=== PATIENT | female | born 1955 | race Caucasian/White ===

== ENCOUNTER → 2017-02-19 | Outpatient (CLI) | payer BC ==
--- NOTE | 2017-02-20 14:21 | MM ---
Reason for exam: screening (asymptomatic). Last mammogram was performed 1 year ago. History: Patient is postmenopausal and has history of other cancer at age 56. Physical Findings: A clinical breast exam by your physician is recommended on an annual basis and results should be correlated with mammographic findings. MG Screening Mammo w CAD Bilateral CC and MLO view(s) were taken. Prior study comparison: February 19, 2016, bilateral MG screening mammo w CAD. December 29, 2014, bilateral MG screening mammo w CAD. There are scattered fibroglandular densities. There is chronic nodularity in the right breast. No significant changes when compared with prior studies. ASSESSMENT: Benign, BI-RAD 2 RECOMMENDATION: Routine screening mammogram of both breasts in 1 year.
== END | disposition home or self-care (01) ==
LOC: RADMAMWWP 08:58
PROVIDERS: ATTEND Obstetrics & Gynecology
DX: Z12.31 Encounter for screening mammogram for malignant neoplasm of breast (principal)

== ENCOUNTER → 2017-06-05 | Outpatient (CLI) | payer BC ==
[2017-06-05 14:04] LABS: Basophils # (A) 0.1 k/uL (0-0.2); Basophils % (A) 1 %; Eosinophils # (A) 0.1 k/uL (0-0.7); Eosinophils % (A) 2 %; HCT 38.8 % (34.0-46.0); HGB 12.7 gm/dL (11.4-16.0); Lymphocytes % (A) 35 %; MCH 29.1 pg (25.0-35.0); MCHC 32.7 g/dL (31.0-37.0); MCV 89.1 fL (80.0-100.0); Mean Platelet Volume 7.7; Monocytes # (A) 0.3 k/uL (0-1.0); Monocytes % (A) 5 %; Neutrophils # (A) 3.2 k/uL (1.3-7.7); Neutrophils % (A) 56 %; Platelet Count 269 k/uL (150-450); RBC 4.35 m/uL (3.80-5.40); RDW 13.3 % (11.5-15.5); WBC 5.8 k/uL (3.8-10.6)
[2017-06-05 14:19] LABS: Ionized Calcium 5.9 mg/dL (4.5-5.3)
[2017-06-05 14:20] LABS: Phosphorus 3.1 mg/dL (2.5-4.5)
[2017-06-05 14:35] LABS: T4, Free (Free Thyroxine) 1.95 ng/dL (0.78-2.19)
[2017-06-05 19:33] LABS: Parathyroid Hormone Intact 104.5 pg/mL (14.0-72.0)
== END | disposition home or self-care (01) ==
LOC: LABWHC1 13:22
PROVIDERS: ATTEND Internal Medicine Endocrinology, Diabetes & Metabolism
DX: E89.0 Postprocedural hypothyroidism (principal); D34 Benign neoplasm of thyroid gland; E21.0 Primary hyperparathyroidism; E55.9 Vitamin D deficiency, unspecified
CPT/HCPCS: 36415; 82306; 82330; 83735; 83970; 84100; 84439; 84443; 85025

== ENCOUNTER 2018-03-22 18:26 | Emergency (ER) | payer MEDICARE ==
--- NOTE | 2018-03-22 18:59 | ED ---
Fall HPI - General Chief Complaint: Fall Stated Complaint: fall, left ankle pain, knee pain, foot pain Time Seen by Provider: 03/22/18 18:33 Source: patient, RN notes reviewed, old records reviewed Mode of arrival: ambulatory - History of Present Illness Initial Comments: Patient is a 63-year-old female who presents emergency Department today with chief complaint of left ankle, bilateral knee pain and bilateral foot pain. Patient reports that she tripped and fell going down 2 stairs. She denies any head or neck injury. She states that she had no loss consciousness. She denies any upper extremity injury, or significant back pain. Patient reports that she has had swelling over the left ankle. Patient relates that she was at a crisis constitution party and ice over the area. She states that over the past few years she's had no history of extremity injuries. - Related Data Previous Rx's Medication Instructions Recorded Ibuprofen 600 mg PO TID #30 tablet 03/22/18 Allergies Allergy/AdvReac Type Severity Reaction Status Date / Time cefaclor [From Ceclor] Allergy Unknown Verified 03/22/18 18:29 Review of Systems ROS Statement: Those systems with pertinent positive or pertinent negative responses have been documented in the HPI. ROS Other: All systems not noted in ROS Statement are negative. Past Medical History Past Medical History: Thyroid Disorder History of Any Multi-Drug Resistant Organisms: None Reported Past Surgical History: Section, Hysterectomy, Tonsillectomy Additional Past Surgical History / Comment(s): thyroidectomy, tumor removed right chest, Past Psychological History: No Psychological Hx Reported Smoking Status: Never smoker Past Alcohol Use History: None Reported Past Drug Use History: None Reported General Exam - General Exam Comments Initial Comments: 63-year-old female. Limitations: no limitations General appearance: alert, in no apparent distress Head exam: Present: atraumatic, normocephalic, normal inspection Eye exam: Present: normal appearance, PERRL, EOMI. Absent: scleral icterus, conjunctival injection, periorbital swelling ENT exam: Present: normal exam, mucous membranes moist Neck exam: Present: normal inspection. Absent: tenderness, meningismus, lymphadenopathy Respiratory exam: Present: normal lung sounds bilaterally. Absent: respiratory distress, wheezes, rales, rhonchi, stridor Cardiovascular Exam: Present: regular rate, normal rhythm, normal heart sounds. Absent: systolic murmur, diastolic murmur, rubs, gallop, clicks GI/Abdominal exam: Present: soft, normal bowel sounds. Absent: distended, tenderness, guarding, rebound, rigid Extremities exam: Present: normal inspection, full ROM, normal capillary refill. Absent: tenderness, pedal edema, joint swelling, calf tenderness Left Knee exam: Present: normal inspection, full ROM Lower Leg exam: Present: full ROM, tenderness (over lateral malleolus ), swelling. Absent: normal inspection Ankle exam: Present: normal inspection, full ROM Foot/Toe exam: Present: normal inspection, full ROM Neurovascular tendon exam: Present: no vascular compromise Gait: observed and normal Back exam: Present: normal inspection Neurological exam: Present: alert, oriented X3, CN II-XII intact Course Vital Signs 03/22/18 18:29 Temperature 98.2 F Pulse Rate 71 Respiratory 18 Rate Blood Pressure 147/91 O2 Sat by Pulse 98 Oximetry Procedures - Orthopedic Splinting/Casting Injury #1 Side: left Upper Extremity Immobilizer: Kevin wrap Lower Extremity Injury Location: ankle Lower Extremity Immobilizer: [employer] Medical Decision Making - Medical Decision Making Since 3-year-old female presents after trip and fall of 2-3 steps. She plans of left ankle pain, bilateral knee pain. She has left ankle swelling tenderness or lateral malleolus. His pulse and sensation distally. At this time x-rays of the bilateral knees were completed and negative for any acute process. She does have significant subcutaneous edema over the left ankle but no fractures are noted. The foot x-rays reviewed and normal. Discussed this time just likely severe ankle sprain. Given Kevin wrap and ankle stirrup splint. Patient will follow-up with orthopedic, discuss a temperature medication for pain. All questions answered return parameters were discussed. - Radiology Data Radiology results: report reviewed Ankle mortise appears within normal limits per and some spurring from the medial malleolus is present. Mild to moderate diffuse E edema most prominent over the lateral malleolus. The inferior and superior calcaneal spurs urgent internally noted. Normal knee x-rays bilaterally. Normal foot x-rays bilaterally. Disposition Clinical Impression: Fall, Knee contusion, Left ankle sprain Disposition: HOME SELF-CARE Condition: Good Instructions: Ankle Sprain (ED) Additional Instructions: Patient advised of close follow up with economic development specialist. Rest, ice, and elevate the foot. Patient should return to emergency department if any alarming signs or symptoms occur. Take the medication as prescribed. Read the ankle stirrup splint and Kevin wrap. Prescriptions: Ibuprofen 600 mg PO TID #30 tablet Is patient prescribed a controlled substance at d/c from ED?: No Referrals: Pacheco Terry DO [Primary Care Provider] - 1-2 days Yary Marshall, GELY [PHYSICIAN TOMBST[employer] SETTER] - 1-2 days Pacheco Leavitt DO [Doctor of Osteopathic Medicine] - 1-2 days Time of Disposition: 19:51
--- NOTE | 2018-03-22 19:45 | XR ---
EXAMINATION TYPE: XR ankle complete LT DATE OF EXAM: 03/22/2018 CLINICAL HISTORY: Pain from fall injury 3 weeks ago TECHNIQUE: Frontal, lateral and oblique images of the left ankle are obtained. COMPARISON: None. FINDINGS: Demineralization is present which is noted lower radiographic sensitivity There is no acut e fracture/dislocation evident in the left ankle. The ankle mortise appears within normal limits. S ome spurring from the medial malleolus is present. There is [id number] diffuse subcutaneous lisa ma most prominent over the lateral malleolus. Superior and inferior calcaneal spurs are incidentally seen. IMPRESSION: There is no acute fracture or dislocation in the left ankle.
--- NOTE | 2018-03-22 19:45 | XR ---
EXAMINATION TYPE: XR knee complete bilateral DATE OF EXAM: 03/22/2018 CLINICAL HISTORY: Fall injury with pain. TECHNIQUE: Three views of the bilateral knees are obtained. COMPARISON: None. FINDINGS: There is no acute fracture/dislocation evident in either knee. [id number] tricompart ment joint space loss is seen most prominent left patellofemoral compartment. Bilateral fabella are present. The overlying soft tissue appears unremarkable bilaterally. IMPRESSION: There is no acute fracture or dislocation in either knee.
--- NOTE | 2018-03-22 19:47 | XR ---
EXAMINATION TYPE: XR foot limited bilateral DATE OF EXAM: 03/22/2018 CLINICAL HISTORY: Bowel injury with pain TECHNIQUE: Frontal and lateral images of the bilateral free are obtained. COMPARISON: None FINDINGS: There is no acute fracture/dislocation evident in either foot. Left foot shows large super ior and inferior calcaneal spurs. Right foot shows large inferior calcaneal spur. Lateral view shows moderate midfoot spurring right foot. Flexion and bilateral toes is present. The overlying soft tiss ue appears unremarkable bilaterally. IMPRESSION: There is no acute fracture or dislocation in either foot.
[2018-03-22 20:03] VITALS: BP 136/72; PULSE 66; RESP 17; TEMP 98.3
== END 2018-03-22 20:04 | disposition home or self-care (01) ==
LOC: EC 18:26
DX: S93.402A Sprain of unspecified ligament of left ankle, initial encounter (principal); S80.01XA Contusion of right knee, initial encounter; S80.02XA Contusion of left knee, initial encounter; Z88.1 Allergy status to other antibiotic agents; W10.9XXA Fall (on) (from) unspecified stairs and steps, initial encounter
CPT/HCPCS: 29515; 99284

== ENCOUNTER → 2018-06-09 | Outpatient (CLI) | payer MEDICARE ==
--- NOTE | 2018-06-10 11:38 | MM ---
Reason for exam: screening (asymptomatic). Last mammogram was performed 1 year and 4 months ago. History: Patient is postmenopausal and has history of other cancer at age 56. Physical Findings: A clinical breast exam by your physician is recommended on an annual basis and results should be correlated with mammographic findings. MG 3D Screening Mammo W/Cad Bilateral CC and MLO view(s) were taken. Prior study comparison: February 19, 2017, bilateral MG screening mammo w CAD. February 19, 2016, bilateral MG screening mammo w CAD. There are scattered fibroglandular densities. There is chronic nodularity in the right breast. ASSESSMENT: Benign, BI-RAD 2 RECOMMENDATION: Routine screening mammogram of both breasts in 1 year.
== END | disposition home or self-care (01) ==
LOC: RADMAMWWP 11:12
PROVIDERS: ATTEND Obstetrics & Gynecology
DX: Z12.31 Encounter for screening mammogram for malignant neoplasm of breast (principal)
CPT/HCPCS: 77063; 77067

== ENCOUNTER 2019-02-09 21:37 | Emergency (ER) | payer MEDICARE ==
[2019-02-09 21:43] VITALS: RESP 18; TEMP 98
[2019-02-09] MEDS ORDERED: cloNIDine HCL 0.2 MG TAB PO STA (22:41)
[2019-02-09 22:43] LABS: Basophils # (A) 0.1 k/uL (0-0.2); Basophils % (A) 1 %; Eosinophils # (A) 0.2 k/uL (0-0.7); Eosinophils % (A) 3 %; HCT 40.3 % (34.0-46.0); HGB 13.6 gm/dL (11.4-16.0); Lymphocytes # (A) 2.3 k/uL (1.0-4.8); Lymphocytes % (A) 36 %; MCH 30.4 pg (25.0-35.0); MCHC 33.9 g/dL (31.0-37.0); MCV 89.6 fL (80.0-100.0); Mean Platelet Volume 6.5; Monocytes # (A) 0.2 k/uL (0-1.0); Monocytes % (A) 4 %; Neutrophils # (A) 3.5 k/uL (1.3-7.7); Neutrophils % (A) 55 %; Platelet Count 305 k/uL (150-450); RDW 12.2 % (11.5-15.5); WBC 6.4 k/uL (3.8-10.6)
[2019-02-09 22:46] LABS: ALT 14 U/L (9-52); AST 33 U/L (14-36); African American GFR (CKD) >90 (>60 ml/min/1.73 sqM); Albumin 4.3 g/dL (3.5-5.0); Alkaline Phosphatase 68 U/L (38-126); Anion Gap 9 mmol/L; Blood Urea Nitrogen 16 mg/dL (7-17); Calcium 11.1 mg/dL (8.4-10.2); Carbon Dioxide 26 mmol/L (22-30); Chloride 102 mmol/L (98-107); Glucose 113 mg/dL (74-99); Magnesium 1.9 mg/dL (1.6-2.3); Sodium 137 mmol/L (137-145); Total Bilirubin 0.5 mg/dL (0.2-1.3); Total Protein 7.4 g/dL (6.3-8.2)
[2019-02-09 22:47] LABS: INR 0.9 (<1.2); Partial Thromboplastin Time 23.3 sec (22.0-30.0); Prothrombin Time 9.7 sec (9.0-12.0)
--- NOTE | 2019-02-09 22:47 | ED ---
General Adult HPI - General Chief complaint: Recheck/Abnormal Lab/Rx Stated complaint: High blood pressure Time Seen by Provider: 02/09/19 21:46 Source: patient, family Mode of arrival: ambulatory Limitations: no limitations - History of Present Illness Initial comments: 's patient is a 64-year-old woman who presents to have evaluation after noting that her blood pressure has been higher than usual over the course of this evening. The patient states that she began having what she is describing as dizziness going on about 2 weeks ago. She followed with her primary physician and was found to have what appear to be new onset of hypertension and was started on hydrochlorothiazide 12.5 mg per day. Patient has been checking her blood pressures over the past week they have been running in the 130s over 90s. She states that today she noted that things were bit higher, so she has checked more frequently today and her blood pressure has been working upward and now 170s over 100s. She states that she continues to have the dizzy feeling. There is no chest pain, dyspnea, diaphoresis, nausea or vomiting. She denies headache or strokelike symptoms. No change in vision, speech or swallowing. No weakness or numbness. -: week(s) Location: head Consistency: constant Improves with: none Worsens with: none Associated Symptoms: denies other symptoms Treatments Prior to Arrival: other (Patient took an extra dose of hydrochlorothiazide.) - Related Data Home Medications Medication Instructions Recorded Confirmed Cholecalciferol (Vitamin D3) 2,000 unit PO DAILY 02/09/19 02/09/19 [Vitamin D3] Hydrochlorothiazide [Hydrodiuril] 12.5 mg PO DAILY 02/09/19 02/09/19 Levothyroxine Sodium [Tirosint] 100 mcg PO DAILY 02/09/19 02/09/19 Meclizine HCl [Bonine] 25 mg PO DAILY PRN 02/09/19 02/09/19 Multivitamins, Thera [Multivitamin 1 tab PO DAILY 02/09/19 02/09/19 (formulary)] Allergies Allergy/AdvReac Type Severity Reaction Status Date / Time cefaclor [From [facility]] Allergy Unknown Verified 02/09/19 22:10 Review of Systems ROS Statement: Those systems with pertinent positive or pertinent negative responses have been documented in the HPI. ROS Other: All systems not noted in ROS Statement are negative. Constitutional: Denies: fever, chills Eyes: Denies: eye pain, vision change Respiratory: Denies: cough, dyspnea Cardiovascular: Denies: chest pain, palpitations, edema, syncope Gastrointestinal: Denies: abdominal pain, nausea, vomiting Genitourinary: Denies: dysuria, hematuria Musculoskeletal: Denies: back pain Skin: Denies: rash Neurological: Denies: headache, weakness, numbness, paresthesias Past Medical History Past Medical History: Thyroid Disorder History of Any Multi-Drug Resistant Organisms: None Reported Past Surgical History: Section, Hysterectomy, Tonsillectomy Additional Past Surgical History / Comment(s): thyroidectomy, tumor removed right chest, Past Psychological History: No Psychological Hx Reported Smoking Status: Never smoker Past Alcohol Use History: None Reported Past Drug Use History: None Reported General Exam Limitations: no limitations General appearance: alert, in no apparent distress Head exam: Present: atraumatic, normocephalic Eye exam: Present: normal appearance, PERRL, EOMI. Absent: scleral icterus, conjunctival injection, nystagmus ENT exam: Present: normal oropharynx Neck exam: Present: normal inspection Respiratory exam: Present: normal lung sounds bilaterally. Absent: respiratory distress, wheezes, rales, rhonchi, stridor Cardiovascular Exam: Present: regular rate, normal rhythm, normal heart sounds. Absent: systolic murmur, diastolic murmur, rubs, gallop GI/Abdominal exam: Present: soft. Absent: distended, tenderness, guarding, rebound, rigid Extremities exam: Present: normal inspection, normal capillary refill. Absent: pedal edema, calf tenderness Back exam: Present: normal inspection. Absent: CVA tenderness (R), CVA tenderness (L) Neurological exam: Present: alert, oriented X3, CN II-XII intact. Absent: motor sensory deficit Skin exam: Present: warm, dry, intact, normal color. Absent: rash Course Vital Signs 02/09/19 02/09/19 21:40 23:04 Temperature 98.0 F Pulse Rate 91 75 Respiratory 18 18 Rate Blood Pressure 170/104 150/70 O2 Sat by Pulse 98 98 Oximetry EKG Findings - EKG Results: EKG: interpreted by ERMD, sinus rhythm (Rate 72 bpm), normal axis, normal QRS, normal ST/T - ND, Pacemaker, Normal: Normal tracing: normal tracing Medical Decision Making - Lab Data Result diagrams: 02/09/19 22:30 02/09/19 22:20 Lab Results 02/09/19 02/09/19 02/09/19 Range/Units 22:20 22:20 22:30 WBC 6.4 (3.8-10.6) k/uL RBC 4.50 (3.80-5.40) m/uL Hgb 13.6 (11.4-16.0) gm/dL Hct 40.3 (34.0-46.0) % MCV 89.6 (80.0-100.0) fL MCH 30.4 (25.0-35.0) pg MCHC 33.9 (31.0-37.0) g/dL RDW 12.2 (11.5-15.5) % Plt Count 305 (150-450) k/uL Neutrophils % 55 % Lymphocytes % 36 % Monocytes % 4 % Eosinophils % 3 % Basophils % 1 % Neutrophils # 3.5 (1.3-7.7) k/uL Lymphocytes # 2.3 (1.0-4.8) k/uL Monocytes # 0.2 (0-1.0) k/uL Eosinophils # 0.2 (0-0.7) k/uL Basophils # 0.1 (0-0.2) k/uL Sodium 137 (137-145) mmol/L Potassium 4.0 (3.5-5.1) mmol/L Chloride 102 (98-107) mmol/L Carbon Dioxide 26 (22-30) mmol/L Anion Gap 9 mmol/L BUN 16 (7-17) mg/dL Creatinine 0.68 (0.52-1.04) mg/dL Est GFR (CKD-EPI)AfAm >90 (>60 ml/min/1.73 sqM) Est GFR (CKD-EPI)NonAf >90 (>60 ml/min/1.73 sqM) Glucose 113 H (74-99) mg/dL Calcium 11.1 H (8.4-10.2) mg/dL Magnesium 1.9 (1.6-2.3) mg/dL Total Bilirubin 0.5 (0.2-1.3) mg/dL AST 33 (14-36) U/L ALT 14 (9-52) U/L Alkaline Phosphatase 68 (38-126) U/L Troponin I <0.012 (0.000-0.034) ng/mL NT-Pro-B Natriuret Pep pg/mL Total Protein 7.4 (6.3-8.2) g/dL Albumin 4.3 (3.5-5.0) g/dL 02/09/19 Range/Units 22:32 WBC (3.8-10.6) k/uL RBC (3.80-5.40) m/uL Hgb (11.4-16.0) gm/dL Hct (34.0-46.0) % MCV (80.0-100.0) fL MCH (25.0-35.0) pg MCHC (31.0-37.0) g/dL RDW (11.5-15.5) % Plt Count (150-450) k/uL Neutrophils % % Lymphocytes % % Monocytes % % Eosinophils % % Basophils % % Neutrophils # (1.3-7.7) k/uL Lymphocytes # (1.0-4.8) k/uL Monocytes # (0-1.0) k/uL Eosinophils # (0-0.7) k/uL Basophils # (0-0.2) k/uL Sodium (137-145) mmol/L Potassium (3.5-5.1) mmol/L Chloride (98-107) mmol/L Carbon Dioxide (22-30) mmol/L Anion Gap mmol/L BUN (7-17) mg/dL Creatinine (0.52-1.04) mg/dL Est GFR (CKD-EPI)AfAm (>60 ml/min/1.73 sqM) Est GFR (CKD-EPI)NonAf (>60 ml/min/1.73 sqM) Glucose (74-99) mg/dL Calcium (8.4-10.2) mg/dL Magnesium (1.6-2.3) mg/dL Total Bilirubin (0.2-1.3) mg/dL AST (14-36) U/L ALT (9-52) U/L Alkaline Phosphatase (38-126) U/L Troponin I (0.000-0.034) ng/mL NT-Pro-B Natriuret Pep 91 pg/mL Total Protein (6.3-8.2) g/dL Albumin (3.5-5.0) g/dL Disposition Clinical Impression: Hypertension Disposition: HOME SELF-CARE Condition: Good Instructions (If sedation given, give patient instructions): Hypertension (ED) Is patient prescribed a controlled substance at d/c from ED?: No Referrals: Pacheco Terry DO [Primary Care Provider] - 1-2 days
--- NOTE | 2019-02-09 22:51 | XR ---
EXAMINATION TYPE: XR chest 2V DATE OF EXAM: 02/09/2019 COMPARISON: NONE HISTORY: High blood pressure TECHNIQUE: Frontal and lateral views of the chest are obtained. FINDINGS: Heart and mediastinum are normal. Lungs are clear. Diaphragm is normal. Bony thorax appear s normal. IMPRESSION: Normal chest.
[2019-02-10 00:19] VITALS: BP 115/78; PULSE 73
== END 2019-02-10 00:19 | disposition home or self-care (01) ==
LOC: EC 21:37
DX: I10 Essential (primary) hypertension (principal); E07.9 Disorder of thyroid, unspecified; Z79.890 Hormone replacement therapy; Z88.8 Allergy status to other drugs, medicaments and biological substances; Z90.89 Acquired absence of other organs
CPT/HCPCS: 36415; 71046; 80053; 83735; 83880; 84484; 85025; 85610; 85730; 93005; 99284

== ENCOUNTER → 2019-11-29 | Outpatient (CLI) | payer MEDICARE ==
--- NOTE | 2019-11-30 10:17 | MM ---
Reason for exam: screening (asymptomatic). Last mammogram was performed 1 year and 6 months ago. History: Patient is postmenopausal and has history of other cancer at age 56. Physical Findings: A clinical breast exam by your physician is recommended on an annual basis and results should be correlated with mammographic findings. MG 3D Screening Mammo W/Cad Bilateral CC and MLO view(s) were taken. Prior study comparison: June 09, 2018, bilateral MG 3d screening mammo w/cad. February 19, 2017, bilateral MG screening mammo w CAD. There are scattered fibroglandular densities. There is no discrete abnormality. No significant changes when compared with prior studies. ASSESSMENT: Negative, BI-RAD 1 RECOMMENDATION: Routine screening mammogram of both breasts in 1 year.
== END | disposition home or self-care (01) ==
LOC: RADMAMWWP 07:42
PROVIDERS: ATTEND Family Medicine
DX: Z12.31 Encounter for screening mammogram for malignant neoplasm of breast (principal)
CPT/HCPCS: 77063; 77067

== ENCOUNTER → 2019-11-29 | Outpatient (CLI) | payer MEDICARE ==
--- NOTE | 2019-11-29 18:33 | BD ---
EXAMINATION TYPE: Axial Bone Density DATE OF EXAM: 11/29/2019 COMPARISON: NONE CLINICAL HISTORY: Height: 5 FT 7 1/2 IN Weight: 196 FRAX RISK QUESTIONS: Alcohol (3 or more units per day): NO Family History (Parent hip fracture): NO Glucocorticoids (More than 3mos): NO (Ex: prednisone, prednisolone, methylprednisolone, dexamethasone, and hydrocortisone). History of Fracture in Adulthood: NO Secondary Osteoporosis: 1. Type 1 Diabetes: NO 2. Hyperthyroidism: NO 3. Menopause before 45: NO 4. Malnutrition: NO 5. Chronic liver disease: NO Rheumatoid Arthritis: NO Current Tobacco Use: NO RISK FACTORS HISTORY OF: Family History of Osteoporosis: NO Active: YES Postmenopausal woman: EARLY 50'S Hyperparathyroidism: YES MEDICATIONS: Thyroid Medications: YES Which medication: TIROSINT How Lon-25 YEARS Additional Medications: JUST STARTED NEW THYROID MED DOES NOT KNOW THE NAME OF IT.,LOTREL,ALBUTEROL A S NEEDED Additional History: EXAM MEASUREMENTS: Bone mineral densitometry was performed using the [employer] System. Bone mineral density as measured about the Lumbar spine is: ----- L1-L4(G/cm2): 1.154 T Score Values are as follows: ----- L2: -0.8 ----- L3: 0.2 ----- L4: 0.3 ----- L1-L4: -0.2 Bone mineral density has: DECREASED -16.9 % since study of: 2002 Bone mineral density about the R hip (g/cm2): 0.808 Bone mineral density about the L hip (g/cm2): 0.946 T Score values are as follows: -----R Neck: -1.7 -----L Neck: -0.7 -----R Total: -1.2 -----L Total: -0.5 Bone mineral density has: DECREASED -27.4 % since study of: 2002 IMPRESSION: Osteopenia (T Score between -2.5 and -1). There is slightly increased risk of fracture and the patient may be considered for treatment. Re-Screen 2-5 years. NOTE: T-SCORE=SD OF THE YOUNG ADULT MEAN.
== END | disposition home or self-care (01) ==
LOC: RADBDWWP 07:45
PROVIDERS: ATTEND Internal Medicine
DX: M85.80 Other specified disorders of bone density and structure, unspecified site (principal)
CPT/HCPCS: 77080

== ENCOUNTER → 2019-11-29 | Outpatient (CLI) | payer MEDICARE ==
[2019-11-29 09:04] LABS: HCT 42.8 % (34.0-46.0); HGB 13.5 gm/dL (11.4-16.0); MCHC 31.6 g/dL (31.0-37.0); MCV 91.8 fL (80.0-100.0); Mean Platelet Volume 7.7; Platelet Count 293 k/uL (150-450); RBC 4.66 m/uL (3.80-5.40); RDW 12.8 % (11.5-15.5); WBC 5.8 k/uL (3.8-10.6)
[2019-11-29 09:16] LABS: Ionized Calcium 5.9 mg/dL (4.5-5.3)
[2019-11-29 15:34] LABS: Albumin 4.4 g/dL (3.80-4.90); Albumin/Globulin Ratio 1.83 (1.60-3.17); Anion Gap 7.1 mmol/L (4.00-12.00); BUN/Creat Ratio 16.25 Ratio (12.00-20.00); Calcium 11.1 mg/dL (8.7-10.3); Carbon Dioxide 28.9 mmol/L (21.6-31.8); Globulin 2.4 g/dL (1.6-3.3); Non-African American GFR(CKD) 76.8 (60.0-200.0); Phosphorus 3.4 mg/dL (2.4-5.1); Potassium 4.6 mmol/L (3.5-5.5); Total Bilirubin 0.7 mg/dL (0.2-1.2); Total Protein 6.8 g/dL (6.2-8.2)
[2019-11-29 15:38] LABS: T4, Free (Free Thyroxine) 1.6 ng/dL (0.80-1.80)
[2019-11-30 12:39] LABS: Chol/HDL Ratio 3.57; LDL Cholesterol,Calculated 123.8 mg/dL (0.0-131.0); VLDL Calculation 20.2 mg/dL (5.00-40.00)
== END | disposition home or self-care (01) ==
LOC: LABWHC1 08:37
PROVIDERS: ATTEND Physician Assistant Medical
DX: E21.0 Primary hyperparathyroidism (principal); E55.9 Vitamin D deficiency, unspecified; E03.9 Hypothyroidism, unspecified; I10 Essential (primary) hypertension; E50.9 Vitamin A deficiency, unspecified; E89.0 Postprocedural hypothyroidism
CPT/HCPCS: 36415; 80053; 80061; 82306; 82330; 83970; 84100; 84439; 84443; 85027

== ENCOUNTER → 2021-04-17 | Outpatient (CLI) | payer MEDICARE ==
--- NOTE | 2021-04-19 11:38 | MM ---
Reason for exam: screening (asymptomatic). Last mammogram was performed 1 year and 5 months ago. History: Patient is postmenopausal and has history of other cancer at age 56. Physical Findings: A clinical breast exam by your physician is recommended on an annual basis and results should be correlated with mammographic findings. MG 3D Screening Mammo W/Cad Bilateral CC and MLO view(s) were taken. Prior study comparison: November 29, 2019, bilateral MG 3d screening mammo w/cad. June 09, 2018, bilateral MG 3d screening mammo w/cad. There are scattered fibroglandular densities. There are benign appearing round calcifications bilaterally. There is chronic nodularity in the right breast. There is no discrete abnormality. ASSESSMENT: Benign, BI-RAD 2 RECOMMENDATION: Routine screening mammogram of both breasts in 1 year.
== END | disposition home or self-care (01) ==
LOC: RADMAMWWP 13:51
PROVIDERS: ATTEND Family Medicine
DX: Z12.31 Encounter for screening mammogram for malignant neoplasm of breast (principal)
CPT/HCPCS: 77063; 77067